=== PATIENT | male | born 1960 | race Caucasian/White ===

== ENCOUNTER 2019-12-15 10:39 | Day surgery (SDC) | payer OTHER ==
--- NOTE | 2019-12-07 10:44 | HP ---
PREOPERATIVE HISTORY AND PHYSICAL: DATE OF SURGERY/ADMISSION: 12/15/19 DATE OF OFFICE VISIT/ENCOUNTER: 12/03/19 ATTENDING SURGEON: Dianne Gutierres MD.* (DICTATED BY EMRE BRIAN) PROCEDURE: Right wrist carpal tunnel release. HISTORY OF PRESENT ILLNESS: This is a 59-year-old male who complains of numbness and tingling in his right hand, ongoing for several years. He gets symptoms when he rides his motorcycle or uses his snowblower. Clinically, he has been diagnosed with carpal tunnel syndrome. He received a cortisone injection recently that was quite helpful; however, the symptoms did return. The patient would now like to proceed with surgical intervention. PAST MEDICAL HISTORY: History of back pain. PAST SURGICAL HISTORY: 1. Left knee arthroscopy. 2. Right elbow surgery. 3. Right total hip arthroplasty. CURRENT MEDICATIONS: Ibuprofen 800 mg t.i.d. p.r.n. pain. ALLERGIES: DEMEROL causes nausea. FAMILY MEDICAL HISTORY: Stroke. SOCIAL HISTORY: The patient is retired from [employer]. 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 He denies tobacco use and recreational drug use. He drinks alcohol on occasion. REVIEW OF SYSTEMS: Negative for general. Cephalic is positive for vertigo. Negative cardiovascular, respiratory, GI, , other musculoskeletal, integumentary, endocrine, neurologic, and hematologic symptoms. Infectious Disease: Negative for MRSA, hepatitis C, HIV. PHYSICAL EXAMINATION GENERAL: Well-developed, well-nourished, 59-year-old male, in on acute distress. VITAL SIGNS: Height 5 feet 8-1/2 inches, weight 170 pounds, pulse rate 76, blood pressure 120/80. HEENT: Normocephalic, atraumatic. Pupils are equal, round, and reactive to light and accommodation. Extraocular movements are intact. NECK: Supple. No palpable lymph nodes. Throat is clear. PULMONARY: Lungs are clear to auscultation bilaterally. No wheezes, rales, or rhonchi. CARDIOVASCULAR: Regular rate and rhythm. S1, S2. No murmurs, rubs, or gallop. No edema. ABDOMEN: Positive bowel sounds, soft, nontender. MUSCULOSKELETAL: On exam of his right upper extremity and his hand, he has a positive median nerve compression test. He has weakness with finger abduction and thumb abduction. There is no thenar wasting. He has a positive Tinel's at the median nerve. NEUROLOGIC: Alert and oriented x3. Cranial nerves II through XII are intact. IMPRESSION: Right carpal tunnel syndrome. PLAN: The patient is scheduled to undergo a right wrist carpal tunnel release with Dr. Gutierres on 12/15/19. He will return to the office in 10 days postop for followup and suture removal. A prescription for tramadol was e-scribed to the patient's pharmacy for postoperative pain management. EMRE BRIAN [id number]/[facility] #: [id number] MTDGregory
[~2019-12-15 10:39] MED LIST: Buffered Lidocaine 1% SYRIN* 1 ML/SYRINGE INTRADERM ONE; Dexamethasone TAB* 4 MG PO ONE; DiMENhydriNATE IV* 50 MG/ML VIAL IV PUSH PRN; Famotidine IV* 10 MG/ML 2 ML (20 mg) IV ONE; Lactated Ringers 1000 ML Bag* 1,000 ML IV SCH; Naloxone* 0.4 MG/ML 1 ML VIAL IV PRN; Ondansetron ODT TAB* 4 MG PO ONE; PROCHLORPERAZINE INJ 5 MG/ML 2 ML VIAL IV PRN; oxyCODONE TAB* 5 MG TAB PO PRN
[2019-12-15] MEDS ORDERED: Dexamethasone TAB* 4 MG ONE (10:48)
[2019-12-15] MEDS ORDERED: Ondansetron ODT TAB* 4 MG ONE (10:49)
[2019-12-15] MEDS ORDERED: Famotidine IV* 10 MG/ML 2 ML (20 mg) ONE (10:49)
[2019-12-15] MEDS ORDERED: fentaNYL* 50 MCG/ML 2 ML VIAL (100 MCG VIAL) ONE (11:30)
[2019-12-15] MEDS ORDERED: Midazolam* 1 MG/ML 5 ML VIAL (5 MG) ONE (11:30)
[2019-12-15] MEDS ORDERED: Lidocaine 1% INJ* 10 MG/ML 30 ML SDV ONE (12:22)
[2019-12-15] MEDS ORDERED: Propofol* 10 MG/ML 20 ML BTL ONE (12:46)
[2019-12-15] MEDS ORDERED: Lidocaine 2% PF * 5 ML VIAL ONE (12:46)
[2019-12-15 14:50] VITALS: BP 140/79
--- NOTE | 2019-12-16 03:26 | OP ---
DATE OF OPERATION: 12/15/19 [facility] DATE OF : 58 SURGEON: Dianne Gutierres MD [employer] OPERATOR: EMRE Fofana ANESTHESIA: Local MAC. PRE-OP DIAGNOSES: Right carpal tunnel syndrome. POST-OP DIAGNOSIS: Right carpal tunnel syndrome. OPERATIVE PROCEDURE: Right carpal tunnel release. INDICATIONS: Gene is a 59-year-old male who has numbness and tingling in the median nerve distribution of his right hand, who presents for right carpal tunnel release. ESTIMATED BLOOD LOSS: Zero. TOURNIQUET TIME: About 10 minutes. DESCRIPTION OF PROCEDURE: The patient was brought to the operating room, was given a sedation anesthetic, and a local infiltration of 10 cc of 1% plain lidocaine in the palm of his right hand. The skin of his right hand and forearm was prepped and draped in the usual sterile fashion. The hand and forearm were exsanguinated and the tourniquet elevated to 250 mmHg. A longitudinal incision was made in the palm in line with a ring finger. We dissected through the subcutaneous tissue down to the transverse carpal ligament. The ligament was divided sharply with the knife and then more proximally with the scissors. The nerve was dissected free from the surrounding tissue and there was an area of moderate compression in the midportion of the ligament. The wound was irrigated and the skin edges were reapproximated with 4-0 nylon suture. The wound was dressed with Xeroform, 4x4, Webril, and an Bipin wrap. The patient tolerated the procedure well and was brought to the recovery room in good condition. [id number]/[facility] #: [id number] [facility]
== END 2019-12-15 13:40 | disposition home or self-care (01) ==
LOC: OREAST 10:39
PROVIDERS: ATTEND Orthopaedic Surgery
DX: G56.01 Carpal tunnel syndrome, right upper limb (principal)
CPT/HCPCS: A9270-GY; J2250; J2704; J3010; J8540

== ENCOUNTER 2023-10-01 06:17 | Observation (INO) ==
[~2023-10-01 06:17] MED LIST changes: +Buffered Lidocaine 1% SYRIN 1 ml INTRADERM ONE; -Buffered Lidocaine 1% SYRIN* 1 ML/SYRINGE INTRADERM ONE; -Dexamethasone TAB* 4 MG PO ONE; -DiMENhydriNATE IV* 50 MG/ML VIAL IV PUSH PRN; +Famotidine IV 10 MG/ML 2 ml VIAL (20 mg) IV ONE; -Famotidine IV* 10 MG/ML 2 ML (20 mg) IV ONE; -Lactated Ringers 1000 ML Bag* 1,000 ML IV SCH; +Lactated Ringers 1000 ml BAG 1,000 ML IV SCH; -Naloxone* 0.4 MG/ML 1 ML VIAL IV PRN; -Ondansetron ODT TAB* 4 MG PO ONE; -PROCHLORPERAZINE INJ 5 MG/ML 2 ML VIAL IV PRN; -oxyCODONE TAB* 5 MG TAB PO PRN
[2023-10-01] MEDS ORDERED: Tranexamic Acid 1 GM/100ML BAG 2,000 MG/200 ML BAG IV ONE (07:03)
[2023-10-01] MEDS ORDERED: ceFAZolin 2 GM in NS PREMIX 2 GM/100 ML BAG IVPB ONE (07:03)
[2023-10-01] MEDS ORDERED: Propofol 10 MG/ML 20 ML BTL ONE ×3 (07:08→11:35)
[2023-10-01] MEDS ORDERED: Lidocaine 2% PF 5 ML VIAL ONE (07:08)
[2023-10-01] MEDS ORDERED: Phenylephrine IV 10 MG/ML 1 ml VIAL ONE (07:08)
[2023-10-01] MEDS ORDERED: KETAMINE HCL 10 MG/ML 20 ml VIAL (200 MG) ONE (07:13)
[2023-10-01] MEDS ORDERED: Midazolam 2 mg/2 ml VIAL 1 mg/ml 2 ml VIAL (2 mg) ONE ×2 (07:15→08:22)
[2023-10-01] MEDS ORDERED: Famotidine IV 10 MG/ML 2 ml VIAL (20 mg) ONE (07:30)
[2023-10-01] MEDS ORDERED: ROPIVACAINE 5 MG/ML 30 ML BTL (0.5%) ONE (07:31)
[2023-10-01 07:45] LABS: Rapid COVID-19 Molecular Undetected (Undetected)
[2023-10-01] MEDS ORDERED: HYDROmorphone 1 MG/1 ML SYRINGE IV PRN (08:11)
[2023-10-01] MEDS ORDERED: Naloxone 0.4 mg VIAL 0.4 mg/ml 1 ml VIAL IV PRN (08:11)
[2023-10-01] MEDS ORDERED: Ondansetron 4 mg VIAL 2 MG/ML 2 ml VIAL IV PRN ×2 (08:11→12:14)
[2023-10-01] MEDS ORDERED: fentaNYL 100 mcg/2 ml 50 MCG/ML VIAL IV PRN (08:11)
[2023-10-01] MEDS ORDERED: Bupivacaine 0.5% SDV PF 30ML VIAL ONE (08:22)
[2023-10-01] MEDS ORDERED: fentaNYL 100 mcg/2 ml 50 MCG/ML VIAL ONE ×2 (08:22→11:40)
[2023-10-01] MEDS ORDERED: Dexamethasone IV 4 MG/ML VIAL 1 ml VIAL ONE (09:50)
[2023-10-01] MEDS ORDERED: Ondansetron 4 mg VIAL 2 MG/ML 2 ml VIAL ONE (09:50)
[2023-10-01] MEDS ORDERED: Lactulose 30 ml UDC PO PRN (12:14)
[2023-10-01] MEDS ORDERED: Magnesium Hydroxide LIQ 30 ML UDC PO PRN (12:14)
[2023-10-01] MEDS ORDERED: Morphine 2 MG/ML SYRINGE IV PRN (12:14)
[2023-10-01] MEDS ORDERED: Ondansetron ODT 4 mg TAB 4 MG TAB PO PRN (12:14)
[2023-10-01] MEDS ORDERED: Lactated Ringers 1000 ml BAG 1,000 ML IV SCH (13:00)
[2023-10-01 16:14] VITALS: BP 122/64
[2023-10-01] MEDS ORDERED: ceFAZolin 1 GM ADVAN 1 GM in NS 0.9% 50 ML 50 ML IVPB SCH (17:30)
[2023-10-01] MEDS ORDERED: Magnesium Hydroxide LIQ 30 ML UDC PO SCH (21:00)
[2023-10-02] MEDS ORDERED: Vitamin THERAPEUTIC TAB PO SCH (09:00)
== END 2023-10-01 17:40 | disposition home or self-care (01) ==
LOC: OR 06:17 → SSU 06:17
PROVIDERS: ADMIT Orthopaedic Surgery Adult Reconstructive Orthopaedic Surgery; ATTEND Orthopaedic Surgery Adult Reconstructive Orthopaedic Surgery